=== PATIENT | female | born 1960 | race Caucasian/White ===

== ENCOUNTER → 2017-12-14 | Outpatient (CLI) | payer OTHER | END | disposition home or self-care (01) | LOC: CFH 14:13 | PROVIDERS: ATTEND Internal Medicine | DX: N63.20 Unspecified lump in the left breast, unspecified quadrant (principal); N64.89 Other specified disorders of breast | CPT/HCPCS: 77065 ==

== ENCOUNTER → 2018-01-11 | Outpatient (CLI) | payer OTHER ==
[~2018-01-11] MED LIST: OMNIPAQUE 350 MG/ML, 100ML BOTTLE ONE
== END ==
LOC: CFH 11:18
PROVIDERS: ATTEND Internal Medicine
DX: K76.89 Other specified diseases of liver (principal)
CPT/HCPCS: 74160; Q9967

== ENCOUNTER 2018-03-03 08:47 | Emergency (ER) | payer OTHER ==
[~2018-03-03] VITALS: Ht 162.6 cm; Wt 68.0 kg
[2018-03-03] MEDS ORDERED: MORPHINE SULFATE 4 MG/ML, 1ML IVPush PRN (09:30)
[2018-03-03] MEDS ORDERED: SODIUM CHLORIDE FLUSH 10ML SYR IVF ONE (09:30)
[2018-03-03] MEDS ORDERED: ONDANSETRON ODT 4 MG PO ONE (09:30)
[2018-03-03] MEDS ORDERED: ONDANSETRON ODT 4 MG ONE (09:34)
[2018-03-03] MEDS ORDERED: MORPHINE SULFATE 4 MG/ML, 1ML ONE (09:34)
[2018-03-03 09:39] LABS: MICROSCOPIC AUTO
[2018-03-03 09:40] LABS: CULTURE INDICATED? YES
[2018-03-03 09:58] LABS: BASOPHILS # (AUTO) 0.04 x10^3/uL (0-0.1); BASOPHILS % (AUTO) 1 % (0-1); EOSINOPHILS # (AUTO) 0.22 x10^3/uL (0-0.4); EOSINOPHILS % (AUTO) 3 % (1-7); LYMPHOCYTES # (AUTO) 1.73 x10^3/uL (1-3.4); LYMPHOCYTES % (AUTO) 23 % (22-44); MD NO; MEAN CORPUSCULAR HEMOGLOBIN 28.9 pg (27.0-34.8); MEAN CORPUSCULAR VOLUME 87.7 fL (80-100); MEAN PLATELET VOLUME 10.9 fL (7.4-10.4); MONOCYTES # (AUTO) 0.41 x10^3/uL (0.2-0.8); MONOCYTES % (AUTO) 6 % (2-9); NEUTROPHILS # (AUTO) 5.08 x10^3/uL (1.8-6.8); NEUTROPHILS % (AUTO) 68 % (42-75); PLATELET COUNT 169 x10^3/uL (130-400); RED BLOOD COUNT 4.67 x10^6/uL (3.82-5.3); RED CELL DISTRIBUTION WIDTH 13.5 % (9.6-15.2)
[2018-03-03 10:08] LABS: ALANINE AMINOTRANSFERASE 21 U/L (12-78); ALBUMIN 3.9 g/dL (3.4-5.0); ANION GAP 7 mmol/L (5-15); CHLORIDE 109 mmol/L (98-107); CREATININE 0.74 mg/dL (0.55-1.02)
[2018-03-03 10:12] LABS: ALKALINE PHOSPHATASE 83 U/L (45-117); BILIRUBIN,TOTAL 0.5 mg/dL (0.2-1.0); TOTAL PROTEIN 7.9 g/dL (6.4-8.2); TROPONIN I < 0.015 ng/mL (0.000-0.045)
[2018-03-03] MEDS ORDERED: MAALOX/HYOSCYAMINE/LIDOCAINE 45 ML BTL ONE (10:32)
[2018-03-03 10:50] VITALS: BP 141/86
[2018-03-03] MEDS ORDERED: MAALOX/HYOSCYAMINE/LIDOCAINE 45 ML BTL PO ONE (11:00)
== END 2018-03-03 11:12 | disposition home or self-care (01) ==
LOC: ED 10:35
DX: K29.00 Acute gastritis without bleeding (principal)
CPT/HCPCS: 36415; 74022; 80053; 81001; 83690; 84484; 85025; 87086; 93005; 96374; 99285; Q0162

== ENCOUNTER 2018-07-01 23:54 | Emergency (ER) | payer OTHER ==
[~2018-07-01] VITALS: Ht 162.6 cm; Wt 66.0 kg
[2018-07-02] MEDS ORDERED: OXYcodone/APAP 5/325MG TABLET ONE (00:14)
[2018-07-02] MEDS ORDERED: ONDANSETRON ODT 4 MG ONE (00:15)
[2018-07-02] MEDS ORDERED: OXYcodone/APAP 5/325MG TABLET PO ONE (00:30)
[2018-07-02] MEDS ORDERED: ONDANSETRON ODT 4 MG PO ONE (00:30)
[2018-07-02] MEDS ORDERED: SODIUM CHLORIDE FLUSH 10ML SYR IVF ONE (01:00)
[2018-07-02] MEDS ORDERED: HYDROmorphone 2 MG/ML, 1ML IVPush PRN (01:00)
[2018-07-02 01:08] LABS: BASOPHILS # (AUTO) 0.09 x10^3/uL (0-0.1); BASOPHILS % (AUTO) 1 % (0-1); EOSINOPHILS # (AUTO) 0.17 x10^3/uL (0-0.4); EOSINOPHILS % (AUTO) 2 % (1-7); LYMPHOCYTES # (AUTO) 3.88 x10^3/uL (1-3.4); LYMPHOCYTES % (AUTO) 47 % (22-44); MD NO; MEAN CORPUSCULAR HEMOGLOBIN 29.4 pg (27.0-34.8); MEAN CORPUSCULAR VOLUME 86.5 fL (80-100); MEAN PLATELET VOLUME 10.7 fL (7.4-10.4); MONOCYTES # (AUTO) 0.59 x10^3/uL (0.2-0.8); MONOCYTES % (AUTO) 7 % (2-9); NEUTROPHILS # (AUTO) 3.47 x10^3/uL (1.8-6.8); NEUTROPHILS % (AUTO) 42 % (42-75); PLATELET COUNT 202 x10^3/uL (130-400); RED BLOOD COUNT 4.67 x10^6/uL (3.82-5.3); RED CELL DISTRIBUTION WIDTH 14.3 % (9.6-15.2)
[2018-07-02] MEDS ORDERED: HYDROmorphone 2 MG/ML, 1ML ONE (01:09)
[2018-07-02 01:20] LABS: ALANINE AMINOTRANSFERASE 17 U/L (12-78); ALBUMIN 4.5 g/dL (3.4-5.0); ANION GAP 9 mmol/L (5-15); CALCIUM 9.6 mg/dL (8.5-10.1); CHLORIDE 112 mmol/L (98-107); CREATININE 0.88 mg/dL (0.55-1.02)
[2018-07-02 01:22] LABS: ALKALINE PHOSPHATASE 81 U/L (45-117); BILIRUBIN,TOTAL 0.8 mg/dL (0.2-1.0); TOTAL PROTEIN 7.9 g/dL (6.4-8.2)
[2018-07-02] MEDS ORDERED: NAPR-850 PO (01:26)
[2018-07-02] MEDS ORDERED: CYCL-259 PO (01:26)
[2018-07-02 01:32] LABS: CULTURE INDICATED? YES; MICROSCOPIC INDICATED
[2018-07-02 02:12] VITALS: BP 126/77
== END 2018-07-02 03:17 | disposition home or self-care (01) ==
LOC: ED 07-02 00:15
DX: M54.6 Pain in thoracic spine (principal); M25.511 Pain in right shoulder; M54.2 Cervicalgia
CPT/HCPCS: 36415; 74176; 80053; 81001; 83690; 85025; 87086; 96374; 99285; J1170; Q0162

== ENCOUNTER → 2018-07-29 | Outpatient (CLI) | payer OTHER ==
[~2018-07-29] MED LIST changes: +CYCL-259 PO; +NAPR-850 PO; -OMNIPAQUE 350 MG/ML, 100ML BOTTLE ONE
== END | disposition home or self-care (01) ==
LOC: CFH 09:53
PROVIDERS: ATTEND Internal Medicine
DX: M47.897 Other spondylosis, lumbosacral region (principal); M75.51 Bursitis of right shoulder; M75.91 Shoulder lesion, unspecified, right shoulder
CPT/HCPCS: 72148

== ENCOUNTER → 2018-08-18 | Outpatient (CLI) | payer OTHER | END | disposition home or self-care (01) | LOC: CFH 12:26 | PROVIDERS: ATTEND Internal Medicine | DX: E04.1 Nontoxic single thyroid nodule (principal); R07.89 Other chest pain | CPT/HCPCS: 71260 ==

== ENCOUNTER → 2018-09-14 | Outpatient (CLI) | payer OTHER | END | disposition home or self-care (01) | LOC: CFH 15:20 | PROVIDERS: ATTEND Internal Medicine | DX: E04.1 Nontoxic single thyroid nodule (principal) | CPT/HCPCS: 76536 ==

== ENCOUNTER 2018-09-27 13:21 | Outpatient (CLI) | payer OTHER ==
[2018-09-27] MEDS ORDERED: LIDOCAINE-MPF 1%, 5ML ONE (13:47)
== END 2018-09-27 23:59 | disposition home or self-care (01) ==
LOC: RAD 13:21
PROVIDERS: ATTEND Internal Medicine
DX: E04.1 Nontoxic single thyroid nodule (principal)
CPT/HCPCS: 10005; 76942; 88173

== ENCOUNTER 2019-07-08 10:03 | Observation (INO) | payer OTHER ==
[~2019-07-08] VITALS: Ht 162.6 cm; Wt 62.7 kg
[2019-07-08] MEDS ORDERED: MECLIZINE CHEWABLE 25 MG TAB ONE (10:51)
[2019-07-08] MEDS ORDERED: ASPIRIN 81 MG TABLET CHEW ONE (10:52)
[2019-07-08] MEDS ORDERED: ASPIRIN 81 MG TABLET CHEW PO ONE (11:00)
[2019-07-08] MEDS ORDERED: MECLIZINE CHEWABLE 25 MG TAB PO ONE (11:00)
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
[2019-07-08 11:23] LABS: BASOPHILS # (AUTO) 0.06 x10^3/uL (0-0.1); BASOPHILS % (AUTO) 1 % (0-1); EOSINOPHILS # (AUTO) 0.11 x10^3/uL (0-0.4); EOSINOPHILS % (AUTO) 2 % (1-7); LYMPHOCYTES # (AUTO) 1.68 x10^3/uL (1-3.4); LYMPHOCYTES % (AUTO) 26 % (22-44); MD NO; MEAN CORPUSCULAR HGB CONC 32.8 g/dL (32.4-35.8); MEAN CORPUSCULAR VOLUME 91.6 fL (80-100); MEAN PLATELET VOLUME 11.1 fL (7.4-10.4); MONOCYTES # (AUTO) 0.43 x10^3/uL (0.2-0.8); MONOCYTES % (AUTO) 7 % (2-9); NEUTROPHILS # (AUTO) 4.11 x10^3/uL (1.8-6.8); NEUTROPHILS % (AUTO) 65 % (42-75); PLATELET COUNT 186 x10^3/uL (130-400); RED BLOOD COUNT 4.85 x10^6/uL (3.82-5.3); RED CELL DISTRIBUTION WIDTH 14.2 % (9.6-15.2)
[2019-07-08 11:28] LABS: ALBUMIN 4.3 g/dL (3.4-5.0); ANION GAP 6 mmol/L (5-15); CALCIUM 9.2 mg/dL (8.5-10.1); CHLORIDE 109 mmol/L (98-107)
[2019-07-08] MEDS ORDERED: SODIUM CHLORIDE FLUSH 10ML SYR IVF ONE (11:30)
[2019-07-08 11:34] LABS: ALANINE AMINOTRANSFERASE 21 U/L (12-78); ALKALINE PHOSPHATASE 75 U/L (45-117); BILIRUBIN,TOTAL 0.9 mg/dL (0.2-1.0); CREATININE 0.77 mg/dL (0.55-1.02); TOTAL PROTEIN 8.2 g/dL (6.4-8.2); TROPONIN I < 0.015 ng/mL (0.000-0.045)
[2019-07-08] MEDS ORDERED: TRAZODONE 50MG TABLET PO PRN (12:30)
[2019-07-08] MEDS ORDERED: ONDANSETRON ODT 4 MG PO PRN (12:30)
[2019-07-08] MEDS ORDERED: ASA/APAP/ CAFFEINE TABLET PO PRN (12:30)
[2019-07-08] MEDS ORDERED: POLYETHYLENE GLYCOL 17 GM PACKET PO PRN (12:30)
[2019-07-08] MEDS ORDERED: MORPHINE SULFATE 4 MG/ML, 1ML IVPush PRN (12:30)
[2019-07-08] MEDS ORDERED: GUAIFENESIN/DM 200-20MG, 10ML UDC PO PRN (12:30)
[2019-07-08] MEDS ORDERED: ONDANSETRON 2MG/ML, 2ML IVPush PRN (12:30)
[2019-07-08] MEDS ORDERED: ACETAMINOPHEN 325 MG TABLET PO PRN (12:30)
[2019-07-08] MEDS ORDERED: hydrALAzine 20 MG/ML, 1ML IVPush PRN (12:30)
--- NOTE | 2019-07-08 12:57 | NUR ---
REPORT TO JAMIL
[2019-07-08 13:06] LABS: FREE T4 (FREE THYROXINE) 1.2 ng/dL (0.76-1.46)
[2019-07-08 16:25] LABS: TROPONIN I < 0.015 ng/mL (0.000-0.045)
[2019-07-08] MEDS: LORATADINE 10 MG TABLET PO SCH (17:51)
[2019-07-08] MEDS: ENOXAPARIN 30 MG/0.3 ML SQ SCH (17:51)
[2019-07-08 19:41] VITALS: BP 114/75
[2019-07-08 19:42] VITALS: BP 114/75
[2019-07-08 22:35] LABS: TROPONIN I < 0.015 ng/mL (0.000-0.045)
[2019-07-09 01:08] VITALS: BP 114/78
[2019-07-09 02:30] VITALS: BP 114/78
[2019-07-09 05:42] LABS: CALCIUM 8.7 mg/dL (8.5-10.1); CHLORIDE 111 mmol/L (98-107); CREATININE 0.81 mg/dL (0.55-1.02)
[2019-07-09 05:43] LABS: ANION GAP 5 mmol/L (5-15)
[2019-07-09] MEDS: ENOXAPARIN 30 MG/0.3 ML SQ SCH ×2 (05:43→12:31)
[2019-07-09 05:50] LABS: BASOPHILS # (AUTO) 0.04 x10^3/uL (0-0.1); BASOPHILS % (AUTO) 1 % (0-1); EOSINOPHILS # (AUTO) 0.23 x10^3/uL (0-0.4); EOSINOPHILS % (AUTO) 5 % (1-7); LYMPHOCYTES % (AUTO) 41 % (22-44); MD NO; MEAN CORPUSCULAR HEMOGLOBIN 29.9 pg (27.0-34.8); MEAN CORPUSCULAR HGB CONC 32.8 g/dL (32.4-35.8); MEAN CORPUSCULAR VOLUME 91.3 fL (80-100); MEAN PLATELET VOLUME 10.8 fL (7.4-10.4); MONOCYTES # (AUTO) 0.51 x10^3/uL (0.2-0.8); MONOCYTES % (AUTO) 10 % (2-9); NEUTROPHILS % (AUTO) 43 % (42-75); PLATELET COUNT 150 x10^3/uL (130-400); RED BLOOD COUNT 4.55 x10^6/uL (3.82-5.3); RED CELL DISTRIBUTION WIDTH 13.9 % (9.6-15.2)
[2019-07-09 07:42] VITALS: BP 123/87
[2019-07-09 07:58] VITALS: BP 123/87
[2019-07-09] MEDS ORDERED: REGADENOSON 0.4 MG/5 ML SYRINGE ONE (08:27)
[2019-07-09] MEDS ORDERED: LORATADINE 10 MG TABLET PO SCH (09:00)
[2019-07-09] MEDS: LORATADINE 10 MG TABLET PO SCH (12:00)
[2019-07-09 13:55] VITALS: BP 121/82
[2019-07-09] MEDS ORDERED: ASPI-515 PO (16:16)
== END 2019-07-09 17:18 | disposition home or self-care (01) ==
LOC: ED 12:05 → EDIP 12:06 → ED 12:16 → 5SO 13:27
PROVIDERS: ADMIT Family Medicine; ATTEND Family Medicine
DX: R53.1 Weakness (principal); R42 Dizziness and giddiness; Z87.891 Personal history of nicotine dependence
CPT/HCPCS: 36415; 70450; 71045; 78452; 80048; 80053; 83735; 84439; 84443; 84481; 84484; 85025; 85379; 93005; 93017; 93306; 96372; 99284; A9502; C9898; G0378; J1650; J2785

== ENCOUNTER 2021-01-28 15:51 | Emergency (ER) | payer OTHER ==
[~2021-01-28] VITALS: Ht 162.6 cm; Wt 60.0 kg
[~2021-01-28 15:51] MED LIST changes: +ASPI-963 PO; -CYCL-259 PO; +CYCL10TA2 PO
[2021-01-28 16:05] VITALS: BP 125/80
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
[2021-01-28] MEDS ORDERED: IBUPROFEN 600 MG TABLET ONE (17:38)
[2021-01-28] MEDS ORDERED: IBUPROFEN 600 MG TABLET PO ONE (18:00)
--- NOTE | 2021-01-28 18:07 | NUR ---
[employer] TEACHING PROVIDED BY [employer], PT VERBALIZES UNDERSTANDING. PT MEDICATED WITH IBUPROFEN FOR PAIN. GAUTAM WRAP PROVIDED TO PT TO TAKE HOME. D/C INSTRUCTIONS & F/U APPT RV'WD WITH PT, SHE VERBALIZES UNDERSTANDING. ASSISTED PT OUT OF ED VIA WC WITH CRUTCHES. PT STATES HER WILL PICK HER UP.
== END 2021-01-28 18:08 | disposition home or self-care (01) ==
LOC: ED 18:00
DX: S90.32XA Contusion of left foot, initial encounter (principal); X58.XXXA Exposure to other specified factors, initial encounter; Y93.89 Activity, other specified; Y92.009 Unspecified place in unspecified non-institutional (private) residence as the place of occurrence of the external cause; Y99.8 Other external cause status
CPT/HCPCS: 99283

== ENCOUNTER 2021-02-23 15:41 | Emergency (ER) | payer OTHER ==
[~2021-02-23] VITALS: Ht 162.6 cm; Wt 57.4 kg
[2021-02-23] MEDS ORDERED: KETAMINE 10 MG/ML, 20ML IV ONE (16:37)
--- NOTE | 2021-02-23 17:10 | NUR ---
0.6 ML OF KETAMINE ADMIN. 30 MG
[2021-02-23 17:14] LABS: BASOPHILS % (AUTO) 1 % (0-1); EOSINOPHILS % (AUTO) 1 % (1-7); LYMPHOCYTES % (AUTO) 27 % (22-44); MEAN CORPUSCULAR HEMOGLOBIN 29.9 pg (27.0-34.8); MEAN CORPUSCULAR HGB CONC 33.5 g/dL (32.4-35.8); MEAN PLATELET VOLUME 10.8 fL (7.4-10.4); MONOCYTES % (AUTO) 8 % (2-9); NEUTROPHILS % (AUTO) 63 % (42-75); PLATELET COUNT 151 x10^3/uL (130-400); RED CELL DISTRIBUTION WIDTH 14.2 % (9.6-15.2)
--- NOTE | 2021-02-23 17:15 | NUR ---
late note. pt medicated per order. pt had reaction to medication and begins to scream that she is in a box and can't breathe. o2 sat at 100 percent and pt screaming in full sentences. provider made aware and provider at bedside. provider ordered versed and torodol to be admin per order. pt agreeable to tx
[2021-02-23] MEDS ORDERED: MIDAZOLAM 1 MG/ML, 2ML ONE (17:25)
[2021-02-23] MEDS ORDERED: KETOROLAC 30 MG/1 ML ONE (17:25)
[2021-02-23 17:26] LABS: ALANINE AMINOTRANSFERASE 19 U/L (12-78); ANION GAP 8 mmol/L (5-15); CALCIUM 9.8 mg/dL (8.5-10.1); CHLORIDE 112 mmol/L (98-107); CREATININE 0.87 mg/dL (0.55-1.02)
[2021-02-23 17:30] LABS: ALKALINE PHOSPHATASE 61 U/L (45-117); BILIRUBIN,TOTAL 0.9 mg/dL (0.2-1.0); TOTAL PROTEIN 7.6 g/dL (6.4-8.2); TROPONIN I < 0.015 ng/mL (0.000-0.045)
[2021-02-23] MEDS ORDERED: KETOROLAC 30 MG/1 ML IVPush ONE (17:30)
[2021-02-23] MEDS ORDERED: MIDAZOLAM 1 MG/ML, 2ML IVPush ONE (17:30)
--- NOTE | 2021-02-23 18:38 | NUR ---
pt resting comfortably at this time.
--- NOTE | 2021-02-23 18:41 | NUR ---
pt to x ray now
[2021-02-23] MEDS ORDERED: DIAZEPAM 5 MG/ML, 2ML ONE (19:17)
[2021-02-23] MEDS ORDERED: OXYcodone/APAP 5/325MG TABLET ONE (19:17)
[2021-02-23] MEDS ORDERED: DIAZEPAM 5 MG/ML, 2ML IVPush ONE (19:30)
[2021-02-23] MEDS ORDERED: OXYcodone/APAP 5/325MG TABLET PO ONE (19:30)
[2021-02-23 21:32] VITALS: BP 110/68
== END 2021-02-23 21:28 | disposition home or self-care (01) ==
LOC: ED 16:45
DX: M54.6 Pain in thoracic spine (principal); G89.29 Other chronic pain; R94.31 Abnormal electrocardiogram [ECG] [EKG]; Z90.89 Acquired absence of other organs
CPT/HCPCS: 36415; 72072; 80053; 84484; 85025; 85379; 93005; 96374; 96375; 99285; J1885; J2250; J3360